=== PATIENT | female | born 1975 | race Hispanic/Latino ===

== ENCOUNTER 2019-05-25 07:57 | Outpatient (CLI) | payer BC ==
--- NOTE | 2019-05-25 09:11 | ULT ---
RENAL ULTRASOUND WITH DUPLEX EVALUATION: INDICATIONS: History of hypertension. FINDINGS: The right testicle measures 12.7 x 5.2 x 4.5 cm. The left testicle measures 13.4 x 5.3 x 6 cm. No h ydronephrosis is evident. Pre-void bladder volume is 42.6 mL. The peak systolic velocity within the right renal artery is 79.2 cm per second and within the left re nal artery is 68.9 cm per second. The peak systolic velocity within the aorta is 106.2 cm per second. The right renal artery/aortic ratio is 0.75 and the left renal artery/aortic ratio is 0.65. resistive index within the arcuate artery in the right kidney is 0.5 and in the left is 0.50. IMPRESSION: 1. No focal renal lesion or hydronephrosis. 2. No sonographic evidence to suggest the presence of renal artery stenosis. POS: OFF
== END 2019-05-25 07:58 | disposition home or self-care (01) ==
LOC: SCSULT 07:57
PROVIDERS: ATTEND Physician Assistant
DX: I10 Essential (primary) hypertension (principal)
CPT/HCPCS: 76700; 76770

== ENCOUNTER 2021-03-23 11:59 | Outpatient (CLI) | payer BC ==
[~2021-03-23 11:59] MED LIST: Iopamidol 370 76% 100 ML VIAL ONE; Iopamidol 370 76% 50 ML VIAL FS ONE
== END 2021-03-23 12:00 | disposition home or self-care (01) ==
LOC: CT 11:59
PROVIDERS: ATTEND Family Medicine
DX: R19.04 Left lower quadrant abdominal swelling, mass and lump (principal); R10.30 Lower abdominal pain, unspecified; K44.9 Diaphragmatic hernia without obstruction or gangrene
CPT/HCPCS: 74177; Q9967

== ENCOUNTER 2021-04-20 14:21 | Outpatient (CLI) | payer BC | END 2021-04-20 14:22 | disposition home or self-care (01) | LOC: BICRAD 14:21 | PROVIDERS: ATTEND Family Medicine | DX: M25.511 Pain in right shoulder (principal) ==

== ENCOUNTER 2021-06-04 08:58 | Outpatient (CLI) | payer BC ==
[2021-06-04 10:16] LABS: #Basophils 0.1 10x3/uL (0.0-0.2); #Eosinphils 0.2 10x3/uL (0.0-0.5); #Neutrophils 7.3 10x3/uL (1.5-8.4); %Basophils 0.5 % (0.0-2.0); %Eosinophils 1.7 % (0.0-6.0); %Lymphocytes 25.6 % (18.0-47.0); %Monocytes 8.9 % (0.0-10.0); %Neutrophils 62.6 % (40.0-75.0); Hemoglobin 11.4 g/dL (12.0-15.5); Mean Corpuscular HGB CONC 32.5 g/dL (32.0-36.0); Mean Corpuscular Hemoglobin 29.3 pg (27.0-33.0); Mean Corpuscular Volume 90.2 fl (81.6-98.3); Mean Platelet Volume 11.4 fl (7.4-10.4); Platelet Count 388 10x3/uL (150-450); RBC Distribution Width 13.3 % (11.5-14.5); Red Blood Cell (RBC) Count 3.89 10x6/uL (3.90-5.03); White Blood Cell (WBC) Count 11.7 10x3/uL (3.5-10.5)
[2021-06-04 10:35] LABS: Anion Gap 13 mmol/L (10-20); BUN (Urea Nitrogen) 10 mg/dL (7.0-18.7); Calc. Creatinine Clearance 0 mL/min (70-130); Calcium 9.6 mg/dL (7.8-10.44); Carbon Dioxide 26 mmol/L (22-29); Chloride 102 mmol/L (98-107); Glucose 97 mg/dL (70-105); Potassium 4.2 mmol/L (3.5-5.1); Sodium 137 mmol/L (136-145)
[2021-06-04 22:32] LABS: SARS-CoV-2 PCR by NAA Not Detected (NotDetected)
== END 2021-06-04 08:59 | disposition home or self-care (01) ==
LOC: LABBT 08:58
PROVIDERS: ATTEND Surgery
DX: Z01.818 Encounter for other preprocedural examination (principal); K63.89 Other specified diseases of intestine; Z20.822 Contact with and (suspected) exposure to COVID-19
CPT/HCPCS: 80048; 85025; 93005; 93010; U0003; U0005

== ENCOUNTER 2021-06-07 08:40 | Day surgery (SDC) | payer BC ==
[2021-06-07] MEDS ORDERED: cefOXitin Sodium/Dextrose 2 GM/50 ML BAG ONE (09:20)
[2021-06-07] MEDS ORDERED: Bupivacaine 0.25% HCL 30 ML VIAL ONE (10:29)
[2021-06-07] MEDS ORDERED: Lidocaine 1% w/Epinephrine 1:100K 20 ML VIAL ONE (10:29)
[2021-06-07] MEDS ORDERED: Fentanyl 100 MCG/2 ML VIAL ONE (10:35)
[2021-06-07] MEDS ORDERED: Midazolam HCl 2 mg/2 ml Vial ONE (10:36)
[2021-06-07] MEDS ORDERED: Ketorolac Tromethamine 30 MG/ML VIAL ONE (10:54)
[2021-06-07] MEDS ORDERED: Rocuronium Bromide 10 MG/ML (10ML VIAL) ONE (10:54)
[2021-06-07] MEDS ORDERED: PHENYLEPHRINE-NS 100 MCG/ML 10 ML SYRINGE ONE (10:54)
[2021-06-07] MEDS ORDERED: PROPOFOL 200 MG/20 ML VIAL ONE (10:54)
[2021-06-07] MEDS ORDERED: Lidocaine 1% PF 5 ML VIAL ONE (10:54)
[2021-06-07] MEDS ORDERED: Dexamethasone 20 MG/5 ML VIAL ONE (10:54)
[2021-06-07] MEDS ORDERED: Ondansetron PF 4 MG/2 ML Vial ONE ×2 (10:54→13:54)
[2021-06-07] MEDS ORDERED: SUGAMMADEX SODIUM 200 MG/2 ML VIAL ONE ×2 (12:02→12:04)
[2021-06-07] MEDS ORDERED: Morphine 4 MG/ML VIAL ONE (12:30)
[2021-06-07] MEDS ORDERED: Morphine 2 MG/ML VIAL ONE (12:47)
== END 2021-06-07 15:50 | disposition home or self-care (01) ==
LOC: SDC 08:40
PROVIDERS: ATTEND Surgery
PROC: 0UB24ZZ Excision of Bilateral Ovaries, Percutaneous Endoscopic Approach (ICD-10-PCS; principal; 2021-06-07)
DX: N83.01 Follicular cyst of right ovary (principal); N83.291 Other ovarian cyst, right side; N83.292 Other ovarian cyst, left side; N94.89 Other specified conditions associated with female genital organs and menstrual cycle; K66.0 Peritoneal adhesions (postprocedural) (postinfection); Z79.899 Other long term (current) drug therapy
CPT/HCPCS: 88305; J0694; J1100; J1885; J2250; J2270; J2405; J2704; J3010; S0020

== ENCOUNTER 2022-12-13 08:31 | Outpatient (CLI) | payer BC ==
[2022-12-13] MEDS ORDERED: Iopamidol 370 76% 100 ML VIAL ONE (14:12)
== END 2022-12-13 08:32 | disposition home or self-care (01) ==
LOC: BICCT 08:31
PROVIDERS: ATTEND Nurse Practitioner Family
DX: R10.9 Unspecified abdominal pain (principal); K44.9 Diaphragmatic hernia without obstruction or gangrene; K76.0 Fatty (change of) liver, not elsewhere classified; K57.90 Diverticulosis of intestine, part unspecified, without perforation or abscess without bleeding
CPT/HCPCS: 74177; 82565

== ENCOUNTER 2023-06-30 11:35 | Outpatient (CLI) | payer OTHER | END 2023-06-30 11:36 | disposition home or self-care (01) | LOC: BICRAD 11:35 | PROVIDERS: ATTEND Family Medicine | DX: M25.561 Pain in right knee (principal); M54.50 Low back pain, unspecified; M25.551 Pain in right hip; M54.6 Pain in thoracic spine; M47.814 Spondylosis without myelopathy or radiculopathy, thoracic region; M47.816 Spondylosis without myelopathy or radiculopathy, lumbar region; M17.11 Unilateral primary osteoarthritis, right knee; M16.11 Unilateral primary osteoarthritis, right hip | CPT/HCPCS: 72070; 72100 ==

== ENCOUNTER 2023-09-02 09:00 | Outpatient (CLI) | payer OTHER | END 2023-09-02 09:01 | disposition home or self-care (01) | LOC: BICMAMMO 09:00 | PROVIDERS: ATTEND Family Medicine | DX: Z12.31 Encounter for screening mammogram for malignant neoplasm of breast (principal); Z98.82 Breast implant status | CPT/HCPCS: 77063; 77067 ==

== ENCOUNTER 2024-02-25 14:49 | Outpatient (CLI) | payer OTHER | END 2024-02-25 14:50 | disposition home or self-care (01) | LOC: BICRAD 14:49 | PROVIDERS: ATTEND Internal Medicine Rheumatology | DX: M54.50 Low back pain, unspecified (principal); M47.816 Spondylosis without myelopathy or radiculopathy, lumbar region; M47.817 Spondylosis without myelopathy or radiculopathy, lumbosacral region | CPT/HCPCS: 72100 ==